=== PATIENT | female | born 1965 | race Caucasian/White ===

== ENCOUNTER → 2016-07-09 | Outpatient (CLI) | payer OTHER ==
[~2016-07-09] MED LIST: HCTZ/TRIAMTEREN1 CAP PO; LEVOXYL0.125 MG PO; VICODIN 5/500 T1 TAB PO; VOLTAREN75 MG PO; XANAX0.5 MG PO
--- NOTE | 2016-07-09 13:50 | RADIOLOGY REPORT PS360 ---
US ABD(COMPLETE-MULTI ORGANS HISTORY: ABNORMAL LIVER FUNCTION, OTHER ASCITES ORDERING PHYSICIAN: Zachery Watkins MD PATIENT AGE: 51 years COMPARISON: None FINDINGS: PANCREAS:Unremarkable. No obvious mass or abnormal fluid collection. No ductal dilatation LIVER:There is slight increased echogenicity of the liver suggesting hepatic steatosis. No focal liver lesion evident. RIGHT KIDNEY:Unremarkable. Normal size and echogenicity. No hydronephrosis LEFT KIDNEY:Unremarkable. No hydronephrosis. Normal size and echogenicity. GALLBLADDER:Cholecystectomy. Common bile duct is prominent at 10 mm but may be related to physiologic changes from the cholecystectomy. AORTA:No evidence of aneurysmal dilatation. SPLEEN:Unremarkable. Normal size and echogenicity ASCITES:None demonstrated. IMPRESSION: 1. Status post cholecystectomy. 2. Suspect mild hepatic steatosis
== END ==
LOC: RAD 08:16
DX: R79.89 Other specified abnormal findings of blood chemistry (principal); R18.8 Other ascites

== ENCOUNTER 2016-10-10 14:37 | Emergency (ER) | payer OTHER ==
[~2016-10-10] VITALS: Ht 154.9 cm; Wt 63.5 kg
--- OUTSIDE RECORDS SUMMARY | 2016-10-10 14:41 | External Medical Summary Rpt ---
Author Author , NIYAH LINDER Address Unknown Phone [email or web address] Immunization Name Date Rout CVX Reac Dose Comm Prov Is Faci e tion ent ider Refu lity Give sed n Tdap 04-0 115 999 Hist H149 No H149 , 9-20 oric Adso 13 al rbed Info rmat ion - Sour ce Unsp ecif ied
--- OUTSIDE RECORDS SUMMARY | 2016-10-10 14:41 | External Medical Summary Rpt ---
Author Author , NIYAH LINDER Address Unknown Phone [email or web address] Care Team Providers Care Supervisor Aircraft Maintenance Name Role Phone LULY Taylor, Unavailable Unavailable LULY Fang H LULY Fang H, Unavailable Unavailable LULY R H Purpose Continuity of Care Document - 06-12-2013 through 2016 Problems Code Diagnosis DOS Provider Status 4619 ACUTE 06-12-2013 LULY Fang SINUSITIS, H UNSPECIFIED Encounters Encounter Start End Date Code Location Performer Type Date OFFICE 47738 LULY MAURICIO OUTPATIEN 4 4 R H R H T NEW 30 MINUTES
--- OUTSIDE RECORDS SUMMARY | 2016-10-10 14:41 | External Medical Summary Rpt ---
Author Author , NIYAH LINDER Address Unknown Phone [email or web address] Care Team Providers Care Sr. Media Manager Name Role Phone LULY Fang H, Unavailable Unavailable LULY R H LULY R H, Unavailable Unavailable LULY R H Purpose Continuity of Care Document - 06-12-2013 through 2016 Problems Code Diagnosis DOS Provider Status 4619 ACUTE 06-12-2013 LULY Fang SINUSITIS, H UNSPECIFIED Encounters Encounter Start End Date Code Location Performer Type Date OFFICE 48818 LULY MAURICIO OUTPATIEN 4 4 R H R H T NEW 30 MINUTES
--- OUTSIDE RECORDS SUMMARY | 2016-10-10 14:41 | External Medical Summary Rpt ---
Author Author , NIYAH LINDER Address Unknown Phone [email or web address] Care Team Providers Care Solar Panel Technician Name Role Phone LULY Taylor, Unavailable Unavailable LULY Fang H LULY Fang H, Unavailable Unavailable LULY R H Purpose Continuity of Care Document - 06-12-2013 through 2016 Problems Code Diagnosis DOS Provider Status 4619 ACUTE 06-12-2013 LULY Fang SINUSITIS, H UNSPECIFIED Encounters Encounter Start End Date Code Location Performer Type Date OFFICE 15761 LULY MAURICIO OUTPATIEN 4 4 R H R H T NEW 30 MINUTES
--- OUTSIDE RECORDS SUMMARY | 2016-10-10 14:41 | External Medical Summary Rpt ---
Author Author TAVOJUSTIN Ascencio, [employer] Organization [employer] Address Unknown Phone Unavailable Results Comprehensive metabolic 2000 panel in Serum or Plasma Observa Value Referen Units Interpr Notes Date tion ce etation Range Albumin/G 1.1 - 1.8 No Normal No August 13 lobulin informati informati 2016 7:59 [Mass on in on in AM ratio] in source source Serum or data data Plasma Albumin 3.4 - 5.0 gm/dL Normal No August 13 [Mass/vol informati 2016 7:59 ume] in on in AM Serum or source Plasma data Alkaline 46 - 116 U/L Normal No August 13 phosphata informati 2016 7:59 se on in AM [Enzymati source c data activity/ volume] in Serum or Plasma Bilirubin 0.2 - 1.0 mg/dL Normal No August 13 .total informati 2016 7:59 [Mass/vol on in AM ume] in source Serum or data Plasma Urea 7 - 18 mg/dL Normal No August 13 nitrogen informati 2016 7:59 [Mass/vol on in AM ume] in source Serum or data Plasma Calcium 8.5 - mg/dL Normal No August 13 [Mass/vol 10.1 informati 2016 7:59 ume] in on in AM Serum or source Plasma data Chloride 98 - 107 mmoL/L Low No August 13 [Moles/vo informati 2016 7:59 lume] in on in AM Serum or source Plasma data Carbon 21.0 - mmoL/L Normal No August 13 dioxide, 32.0 informati 2016 7:59 total on in AM [Moles/vo source lume] in data Serum or Plasma Creatinin 0.55 - mg/dL Normal No August 13 e 1.02 informati 2016 7:59 [Mass/vol on in AM ume] in source Serum or data Plasma Estimated 59- ML/MIN No REFERENCE August 13 informati RANGE: 2017 7:59 glomerula on in >60 AM r source ML/MIN/1. filtratio data 73 SQUARE n rate METERSIf (GF this patient is -A merican, then multiply theresult by 1.210. Globulin 1.3 - 3.2 gm/dL High No August 13 [Mass/vol informati 2016 7:59 ume] in on in AM Serum source data Glucose 74 - 106 mg/dL Normal No August 13 [Mass/vol informati 2016 7:59 ume] in on in AM Serum or source Plasma data Potassium 3.5 - 5.1 mmoL/L Normal August 13 informati 2016 7:59 [Moles/vo on in AM lume] in source Serum or data Plasma Sodium 136 - 145 mmoL/L Low No August 13 [Moles/vo informati 2016 7:59 lume] in on in AM Serum or source Plasma data Aspartate 15 - 37 U/L High August 13 informati 2016 7:59 aminotran on in AM sferase source [Enzymati data c activity/ volume] in Serum or Plasma Alanine 12 - 78 U/L High No August 13 aminotran informati 2016 7:59 sferase on in AM [Enzymati source c data activity/ volume] in Serum or Plasma Protein 6.4 - 8.2 gm/dL Normal No August 13 [Mass/vol informati 2016 7:59 ume] in on in AM Serum or source Plasma data
--- OUTSIDE RECORDS SUMMARY | 2016-10-10 14:41 | External Medical Summary Rpt ---
Author Author , NIYAH LINDER Address Unknown Phone [email or web address] Immunization Name Date Rout CVX Reac Dose Comm Prov Is Faci e tion ent ider Refu lity Give sed n Tdap 04-0 115 999 Hist H149 No H149 , 9-20 oric Adso 13 al rbed Info rmat ion - Sour ce Unsp ecif ied
--- OUTSIDE RECORDS SUMMARY | 2016-10-10 14:41 | External Medical Summary Rpt ---
Author Author , NIYAH LINDER Address Unknown Phone [email or web address] Care Team Providers Care Manager Event Name Role Phone LULY Fang H, Unavailable Unavailable LULY R H LULY R H, Unavailable Unavailable LULY R H Purpose Continuity of Care Document - 06-12-2013 through 2016 Problems Code Diagnosis DOS Provider Status 4619 ACUTE 06-12-2013 LULY Fang SINUSITIS, H UNSPECIFIED Encounters Encounter Start End Date Code Location Performer Type Date OFFICE 87774 LULY MAURICIO OUTPATIEN 4 4 R H R H T NEW 30 MINUTES
--- NOTE | 2016-10-10 15:07 | Urgent Treatment Center Report ---
See Addendum History of Present Issue Date/Time Seen by Provider 10/10/16 1450 Visit Reason Pt arrived:Wheelchair Presenting Problem:PT C/O VOMITING AND DIARRHEA FOR THE PAST WEEK. ADVISES SHE IS UNABLE TO KEEP ANYTHING DOWN Location if Accident: Onset of symptoms date/time:/ or onset unknown for:MEDICAL HX UNKNOWN Have you (or family members/close friends) recently traveled outside the [place]? N If Yes, where/when: Have you had exposure to infectious disease within the past month? TB? Other? Specify: Source patient, RN notes reviewed, family Exam Limitations no limitations Comment Patient reports vomiting and diarrhea X 1 week. Not sure about fever. Says she has been unable to keep anything down. Has generalized abdominal pain. Hands are drawing up, shaking, and she feels too weak to stand. Denies cough. Denies ear pain or sore throat. No bloody emesis. Has urinated X 1 today, very small amount. Trying to drink water but has only had about 1/4 of a water bottle since yesterday. ALLERGIES Coded Allergies: No Known Allergies (09/02/15) Home Medications Reported Medications Alprazolam (Xanax) 0.5 MG PO BID Levothyroxine Sodium (Levoxyl) 0.125 MG PO DAILY Hydrochlorothiazide W/Triamter (Triamterene-Hctz 37.5-25 MG Tb) 1 CAP PO DAILY History Medical History General Angina: Yes [place]: No Hypertension? Yes Hyperlipidemia? No CHF? No COPD? No Asthma? No Hernia? No CVA? No Seizures? No Diabetes? No UTI? Yes Stones? No GB Disease: Yes Hepatitis? No Cataracts? No Glaucoma? No MRSA? No TB? No Cancer? No Immunization HX DT/Tetanus UNKNOWN Flu NEVER Pneumonia NEVER Surgical Hx Previous Surgery?Y CHOLECYSTECTOMY C SECTION ORAL SURGERY- DENTAL EXTR TUBAL LIGATION CARDIAC STENT-DR BURRELL Family History Family HX Diabetes Yes CAD No Hypertension Yes Hyperlipidemia No Cancer Yes TB No Social History Smoking Hx Smoker: Current Every Day Smoker Tobacco: Yes Type Cigarettes Packs/day < 1 Pack Alcohol Alcohol: Yes Review of Systems All Other Systems Reviewed and Negative Gastrointestinal abdominal pain, diarrhea, nausea, vomiting Physical Exam Vital Signs Vital Signs Date Time Temp Pulse Resp B/P Pulse O2 O2 Flow FiO2 Ox Delivery Rate 10/10 1445 98.2 85 16 129/64 98 General Appearance mild distress, fatigued Ear, Nose, Throat hearing grossly normal, normal ENT inspection Respiratory Status No: respiratory distress, trachea midline, chest symmetrical. Lung Sounds bilateral: normal breath sounds, lungs clear. Cardiovascular normal exam, regular rate/rhythm, no peripheral edema, no gallop, no JVD, no murmur, no rub Gastrointestinal abnormal bowel sounds, no guarding, tenderness Extremities non-tender, normal range of motion, normal inspection, normal capillary refill Neurologic alert, normal exam, oriented x 3 Mental status normal mood/affect Medical Decision Making LABS/Meds/Orders Pt receiving controlled substance in ED? No Results/Orders Laboratory Tests 10/10/16 1505: Amylase Pending, Lipase Pending 10/10/16 1505: Sodium 112 *L, Potassium Pending, Chloride 71 L, Carbon Dioxide 24, BUN 50 H, Creatinine 3.3 H, Estimated Creat Clear 20 L, Estimated GFR (MDRD) 15 *L, Glucose 143 H, Calcium 6.7 L, Total Bilirubin 1.6 H, AST 182 H, ALT 126 H, Alkaline Phosphatase 206 H, Total Protein 8.3 H, Albumin 4.2, Globulin 4.1 H, Albumin/Globulin Ratio 1.0 L, WBC 8.8, RBC 4.31, Hgb 14.3, Hct 39.9, MCV 92.4, RDW 12.8, Plt Count 187, MPV 7.8, Gran % 81.7 H, Gran # 7.2, Lymphocytes % 13.3 , Monocytes % 4.2, Eosinophils % 0.7, Basophils % 0.1, Lymphocytes # 1.2, Monocytes # 0.4, Eosinophils # 0.1, Basophils # 0.0, PUBS MCHC 35.8 H, MCH 33.0 H Current Medication Orders Sig/Qian Start time Last Medication Dose Route Stop Time Status Admin Ondansetron HCl 4 MG ONCE ONE 10/10 1515 DC 10/10 IV 10/10 1516 1511 Sodium Chloride 10 ML PRN PRN 10/10 1515 AC IV 10/11 1508 Sodium Chloride 1,000 ML .Q1H1M 10/10 1515 AC 10/10 IV 10/10 1615 1511 Sodium Chloride 10 ML PRN PRN 10/10 1515 AC IV 10/11 1508 Ondansetron HCl 0 .STK-MED ONE 10/10 1509 DC .ROUTE Sodium Chloride 1,000 ML .STK-MED ONE 10/10 1500 DC IV Orders Procedure Date/time Status LIPASE 10/10 1532 Active AMYLASE 10/10 1532 Active IV SALINE LOCK 10/10 1508 Active CBC WITH AUTO DIFF 10/10 1508 Complete CHEM 12 PROFILE 10/10 1508 Active Departure Departure Time of Disposition 1539 Disposition Still a Patient Clinical Impression Primary Impression: Acute renal failure Qualifiers: Acute renal failure type: unspecified Qualified Code: N17.9 - Acute kidney failure, unspecified Secondary Impressions: Dehydration, Vomiting and diarrhea Condition STABLE Referrals Zachery Watkins MD (Family) Comments Transferred to ER after results of CMP came back to [facility] - Creatinine 3.3, with hyponatremia, hypocalcemia and elevated LFTs at 154
[2016-10-10 15:14] LABS: HEMOGLOBIN 14.3 g/dL (12.2-16.2); LYMPH # 1.2 K/mm3 (0.7-4.5); LYMPH % 13.3 % (10-50.0)
[2016-10-10 16:48] LABS: AEROMONAS NOT DETECTED (NOT DETECTE); ASTROVIRUS NOT DETECTED (NOT DETECTE); CYCLOSPORA CAYETANENSIS NOT DETECTED (NOT DETECTE); E COLI O157 NOT DETECTED (NOT DETECTE); ENTEROAGGREGATIVE E COLI NOT DETECTED (NOT DETECTE); ENTEROPATHOGENIC E COLI NOT DETECTED (NOT DETECTE); ENTEROTOXIGENIC E COLI NOT DETECTED (NOT DETECTE); NOROVIRUS NOT DETECTED (NOT DETECTE); SAPOVIRUS NOT DETECTED (NOT DETECTE); SHIGA-LIKE TOXIN PROD. E COLI NOT DETECTED (NOT DETECTE); SHIGELLA/ENTEROINVASIVE E COLI NOT DETECTED (NOT DETECTE); VIBRIO CHOLERAE NOT DETECTED (NOT DETECTE)
--- NOTE | 2016-10-10 17:04 | RADIOLOGY REPORT PS360 ---
CT ABD PELVIS W/O CONTRAST COMPARISON: None HISTORY: Abdominal pain, nausea and vomiting TECHNIQUE: Multiaxial scans obtained from hemidiaphragms the pelvic floor and were performed without IV or oral contrast. Sagittal and coronal reformats were evaluated as well. FINDINGS: The lower lung byrne are clear, is a calcified granuloma left costophrenic angle the liver is upper limits normal size and shows prominent and diffuse fatty infiltration. Stomach spleen and pancreas appear normal. There has been a previous cholecystectomy. The adrenal glands are normal. The kidneys are normal in size and there are no calculi and is no obstructive uropathy. Small bowel appears normal. Do not definitely identify the appendix but there are no pericecal inflammatory changes. There is minimal scattered stool in the ascending colon. The uterus is somewhat small but in the midline. Urinary bladder is partially decompressed but appears normal, is no free fluid in the pelvis. There calcination is in both sides the pelvis likely phleboliths. There is a tiny umbilical hernia containing fat only. IMPRESSION: Prominent and diffuse fatty infiltration of the liver, no acute abdominal or pelvic pathology identified
[2016-10-10 18:01] LABS: URINE BILIRUBIN - DIPSTICK NEGATIVE (NEG); URINE BLOOD 2+ (NEG)
[2016-10-10 18:47] VITALS: BP 128/73
== END 2016-10-10 18:57 | disposition short-term general hospital (02) ==
LOC: UTC 14:37 → ER 14:39
PROVIDERS: Emergency Medicine
DX: N17.9 Acute kidney failure, unspecified (principal); E86.0 Dehydration; I10 Essential (primary) hypertension; Z72.0 Tobacco use
CPT/HCPCS: J2405